=== PATIENT | female | born 1985 | race Caucasian/White ===

== ENCOUNTER 2021-09-26 08:37 | Outpatient (REF) | payer BC, SELFPAY ==
[2021-09-26 09:15] LABS: COVID-19 Test Negative (Negative); IDNOW Serial# 9DD0AD1C
== END 2021-09-26 08:38 | disposition home or self-care (01) ==
LOC: HO.LAB 08:37
PROVIDERS: Visit Provider Internal Medicine
DX: Z20.822 Contact with and (suspected) exposure to COVID-19 (principal)
CPT/HCPCS: 36415; 87635

== ENCOUNTER 2022-12-18 09:14 | Outpatient (REF) | payer OTHER, BC, SELFPAY ==
[2022-12-18 09:32] LABS: IDNOW Serial# 6674DD1D; Strep A Nucleic Acid Positive (Negative)
[2022-12-19 14:54] LABS: Binax Now Covid-19 Ag Negative (Negative)
[2022-12-19 14:55] LABS: Binax Internal Control QC Valid
== END 2022-12-18 09:15 | disposition home or self-care (01) ==
LOC: HO.LAB 09:14
PROVIDERS: Physician Assistant Medical; Absent Provider Physician Assistant; Visit Provider Physician Assistant
DX: Z20.822 Contact with and (suspected) exposure to COVID-19 (principal); J02.9 Acute pharyngitis, unspecified
CPT/HCPCS: 36415; 87651; 87811; C9803

== ENCOUNTER 2023-05-02 08:31 | Emergency (ER) | payer OTHER, BC, SELFPAY ==
--- NOTE | ~2023-05-02 | CT_ITS ---
EXAMINATION: CTA OF THE HEAD AND NECK CLINICAL INFORMATION: Severe neck pain. Rule out dissection. COMPARISON: None available. TECHNIQUE: Test bolus sequences followed by intravenous administration 70 mL of Omnipaque 350. Helical imaging was performed in the axial plane from the mediastinum to the skull vertex. Delayed postcontrast imaging of the head was also performed. The data was processed at the chief cardiopulmonary technologist's workstation for generation of MIP sequences. Three-dimensional volume rendered reformatted images were also generated at an offline 3-D workstation. Stenoses are assessed in accordance with NASCET criteria unless otherwise indicated. This CT examination was performed using dose optimization techniques as appropriate, variously including the following: *Automated exposure control *Adjustment of mA and/or kV according to patient size (this includes techniques or standardized protocols for targeted exams where dose is matched to indication/reason for exam; i.e. extremities or head) *Use of iterative reconstruction technique DLP: 2140 mGy-cm. FINDINGS: CT head: There is no evidence of acute intracranial hemorrhage or territorial infarction. There is no loss of [place] to white matter differentiation. No abnormal mass effect or midline shift is seen. No extra-axial fluid collections are identified. There is no abnormal enhancement. The ventricles are normal in size. There is no abnormal attenuation within the brain parenchyma. The osseous structures and soft tissues are normal. The mastoid air cells and visualized portions of the paranasal sinuses are well aerated. CTA neck: The imaged aortic arch and origins of the great vessels are normal. The common carotid arteries are widely patent. The carotid bifurcations are normal. The cervical internal carotid arteries are normal. The vertebral arteries opacify normally and are of normal caliber. There is hyperemia with increased mucosal enhancement affecting the adenoid soft tissues and the right torus tubarius, which may be infectious or inflammatory in etiology. There are some prominent and increased number of cervical lymph nodes measuring up to 1.2 cm in long axis dimension in the axial plane, which is presumably reactive. A 0.4 cm low-density nodule in the right thyroid lobe visible, for which no further imaging follow-up is indicated. The imaged portions of the lungs are clear. CTA head: The intradural vertebral arteries and basilar artery are normal. The posterior cerebral arteries are widely patent. The internal carotid arteries are of normal caliber. The NAYLA and MCA vascular complexes bilaterally are normal. The venous sinuses opacify normally. CT/CT angio head neck IMPRESSION: No acute intracranial process. Normal CT angiogram of the head and neck. No vascular dissection identified. Mucosal hyperemia in the nasopharyngeal soft tissues and right torus tubarius which is suspicious for acute adenitis; correlate with findings on direct visualization. Reactive cervical adenopathy as well.
[2023-05-02 08:43] VITALS: BP 130/85; PULSE 87; RESP 18; TEMP 36.9; O2SAT 98; BMI 26.2
[2023-05-02 09:25] LABS: MANUAL DIFF FLAG NO
--- NOTE | 2023-05-02 09:26 | PC.NURSE ---
Pt able to ambulate into ED, reporting 8/10 neck pain, that radiates down her spine, and up into the base of her skull, LEE present, pt reports taking APAP prior to coming in. Denies Fever/sob/n/v/d. Pt children have been sick last two weeks. Iv placed, and labs obtained
[2023-05-02 09:29] LABS: Basophils Percent Auto 0.6 % (0-2); Eosinophils Absolute Auto 0.1 X10*3/uL (0.0-0.4); Eosinophils Percent Auto 0.9 % (0-4); Hematocrit 39.2 % (37.0-47.0); Hemoglobin 13.6 g/dl (12.0-16.0); Imm Gran Abs Auto 0.01 X10*3/uL (0.00-0.03); Imm Gran Pct Auto 0.2 % (0.0-0.4); Lymphocytes Absolute Auto 1.1 X10*3/uL (1.2-4.9); Lymphocytes Percent Auto 16.8 % (20-40); Mean Corpuscular HGB Conc 34.7 g/dl (31.0-35.0); Mean Corpuscular Hemoglobin 31.3 pg (27.0-33.0); Mean Corpuscular Volume 90.3 fL (80.0-98.0); Monocytes Absolute Auto 0.8 X10*3/uL (0.1-1.2); Monocytes Percent Auto 11.9 % (2-11); Neutrophils Absolute Auto 4.5 x10*3/uL (2.0-8.3); Neutrophils Percent Auto 69.6 % (45-73); Platelet Count 185 X10*3/uL (160-400); Red Blood Count 4.34 X10*6/uL (4.20-5.50); Red Cell Distribution Width 11.9 % (11.0-16.0); White Blood Count 6.5 X10*3/uL (4.8-10.8)
--- NOTE | 2023-05-02 09:42 | ED.NECK ---
HPI - Neck Pain/Injury General Chief Complaint: Neck Pain/Injury Stated Complaint: Neck pain Time Seen by Provider: 05/02/23 09:18 Source: patient Mode of arrival: ambulatory Limitations: no limitations History of Present Illness HPI Narrative: 37 yo female no sig PMH here with c/o abrupt onset atraumatic bilateral neck pain radiating up and down back to head without known trauma or neck manipulation recently, no fevers / rash / tick bite. No numbness/tingling. Has not happened before. Feels like it hard to swallow but no sore throat. She does not have a headache but feels the pain goes up from neck to head. MD complaint: neck pain Onset (ago): hour(s) (couple of hours woke up with it) Place: home Radiation: right lateral and left lateral Severity: severe Quality: spasming and throbbing Duration: constant Relieving factors: immobilization Exacerbating factors: movement of neck and swallowing Associated symptoms: headache and other (back pain) Treatments prior to arrival: none Related Data Previous Rx's Medication Instructions Recorded amoxicillin 875 mg-potassium 1 tab PO BID #14 tabs 05/02/23 clavulanate 125 mg tablet cyclobenzaprine 10 mg tablet 10 mg PO TID PRN muscle spasm #20 05/02/23 tabs Allergies Allergy/AdvReac Type Severity Reaction Status Date / Time No Known Allergies Allergy Verified 05/02/23 08:43 Review of Systems Review of Systems: Constitutional : No Weight loss, No Fever, No Chills, ENT/Mouth : No Hearing loss, No Ear Pain, No Nasal Congestion, No Sinus Pain, No Hoarseness, No sore throat, No Rhinorrhea, pos Swallowing Difficulty Cardiovascular : No Chest Pain, No SOB Respiratory : No Cough, No Dyspnea Gastrointestinal : No Nausea, No Vomiting, No Diarrhea, No abdominal Pain, No Hematochezia, No Melena Genitourinary : No Dysuria, No Urinary Frequency, No Hematuria, No Urinary Incontinence, Musculoskeletal : positive neck pain Skin : No Skin Lesions, No rash Neuro : No Weakness, No Numbness, No Paresthesias, no loss of bowel or bladder incontinence, no saddle anesthesia PMFSH Past Medical History Attestation statement: The following information was validated with the patient. Medical History No pertinent past medical history Social History Social History Patient Tobacco Use Status: Never used Tobacco Smoked in Last 30 Days: No Advance Directives: No Physical Exam Vital Signs: Vital Signs: Last Vital Signs Temp 98.4 F 05/02/23 08:43 Pulse 87 05/02/23 08:43 Resp 18 05/02/23 08:43 BP 130/85 05/02/23 08:43 Pulse Ox 98 05/02/23 08:43 O2 Del Method Room Air 05/02/23 08:43 BMI result Body Mass Index 26.2 Appearance: Alert. Oriented X3. No acute distress. Eyes: Pupils equal, round and reactive to light. ENT: Pharynx normal. Neck: Normal inspection. Neck supple. CVS: Normal heart rate and rhythm. Pulses normal. Respiratory: No respiratory distress. Breath sounds normal. Abdomen: Soft and non-tender. Skin: Skin warm and dry. Normal skin color. Normal skin turgor. Extremities: No lower extremity edema. No calf ttp Neuro: Oriented X 3. No motor deficit. No sensory deficit. Course Course Course Narrative: feels much better has no diff swallowing stable for DC full ROM of neck I see no issues on R or L TM, no oral findings - no airway issues given read will start on augmentin Medications Administered Discontinued Medications Generic Name Dose Route Start Last Admin Trade Name Freq PRN Reason Stop Dose Admin Diazepam 2.5 mg 05/02/23 09:26 05/02/23 10:01 Diazepam 10 Mg/2 Ml Cartridge IVPUSH 05/02/23 09:27 2.5 mg STAT STA Administration Lactated Ringer's 1,000 mls @ 999 mls/hr 05/02/23 09:30 05/02/23 11:55 Lr IV 05/02/23 10:30 Infused .Q1H1M DEEP Infusion Iohexol 70 ml 05/02/23 11:39 05/02/23 11:40 Iohexol 350 Mg/Ml 100 Ml Infus..Btl IV 05/02/23 11:40 70 ml ONCE ONE Administration Medical Decision Making Medical Decision Making MDM Narrative: 37 yo female with no sig PMH here with c/o reproduceable neck pain that is not associated with trauma or chiropractic manipulation - she is NV intact. I can reproduce all of the pain with movement and palpation on the neck and spine. She denies fevers or tick bites. At thist lia basic labs and given degree of pain particularly with swallowing I am going to obtain CTA and given IV valium for spasm - CTA ordered for unusual swelling and dissection Differential Diagnosis Differential Diagnoses: The differential diagnosis associated with the presentation includes spasm, lyte derangement, dissection, swelling Lab Data MDM Lab Attestation statement: I reviewed the patient's lab results. 05/02/23 09:18 05/02/23 09:18 Labs: Lab Results 05/02/23 05/02/23 05/02/23 Range/Units 09:18 09:18 09:18 WBC 6.5 (4.8-10.8) X10*3/uL RBC 4.34 (4.20-5.50) X10*6/uL Hgb 13.6 (12.0-16.0) g/dl Hct 39.2 (37.0-47.0) % MCV 90.3 (80.0-98.0) fL MCH 31.3 (27.0-33.0) pg MCHC 34.7 (31.0-35.0) g/dl RDW 11.9 (11.0-16.0) % Plt Count 185 (160-400) X10*3/uL MPV 10.0 (9.4-12.3) fL Immature Gran % (Auto) 0.2 (0.0-0.4) % Neut % (Auto) 69.6 (45-73) % Lymph % (Auto) 16.8 L (20-40) % [place] % (Auto) 11.9 H (2-11) % Eos % (Auto) 0.9 (0-4) % Baso % (Auto) 0.6 (0-2) % Lymph # (Auto) 1.1 L (1.2-4.9) X10*3/uL [place] # (Auto) 0.8 (0.1-1.2) X10*3/uL Eos # (Auto) 0.1 (0.0-0.4) X10*3/uL Baso # (Auto) 0.0 (0.0-0.2) X10*3/uL Abs Immat Gran (auto) 0.01 (0.00-0.03) X10*3/uL Absolute Neuts (auto) 4.5 (2.0-8.3) x10*3/uL Absolute Nucleated RBC 0.000 (0.0-0.012) X10*3/uL Nucleated RBC % (auto) 0.0 (0.0-0.2) /100WBC ESR 2 (0-20) MM/HR Sodium 138 (135-145) mmol/L Potassium 4.4 (3.3-5.1) mmol/L Chloride 102 (96-108) mmol/L Carbon Dioxide 25 (22-29) mmol/L Anion Gap 15 (12-20) BUN 11 (9-16) mg/dL Creatinine 0.83 (0.5-1.4) mg/dL Estim Creat Clear Calc 85.3 Estimated GFR > 60 Random Glucose 112 (60-115) mg/dL Calcium 9.4 (8.4-10.2) mg/dL Magnesium (1.6-2.6) mg/dL Beta HCG, Quant mIU/mL Influenza Type A (PCR) (Negative) Influenza Type B (PCR) (Negative) RSV RNA Qual (PCR) (Negative) SARS-CoV-2 RNA (RT-PCR) (Negative) S. pyogenes GrpA BRYCE (Negative) 05/02/23 05/02/23 05/02/23 Range/Units 10:00 10:01 10:58 WBC (4.8-10.8) X10*3/uL RBC (4.20-5.50) X10*6/uL Hgb (12.0-16.0) g/dl Hct (37.0-47.0) % MCV (80.0-98.0) fL MCH (27.0-33.0) pg MCHC (31.0-35.0) g/dl RDW (11.0-16.0) % Plt Count (160-400) X10*3/uL MPV (9.4-12.3) fL Immature Gran % (Auto) (0.0-0.4) % Neut % (Auto) (45-73) % Lymph % (Auto) (20-40) % [place] % (Auto) (2-11) % Eos % (Auto) (0-4) % Baso % (Auto) (0-2) % Lymph # (Auto) (1.2-4.9) X10*3/uL [place] # (Auto) (0.1-1.2) X10*3/uL Eos # (Auto) (0.0-0.4) X10*3/uL Baso # (Auto) (0.0-0.2) X10*3/uL Abs Immat Gran (auto) (0.00-0.03) X10*3/uL Absolute Neuts (auto) (2.0-8.3) x10*3/uL Absolute Nucleated RBC (0.0-0.012) X10*3/uL Nucleated RBC % (auto) (0.0-0.2) /100WBC ESR (0-20) MM/HR Sodium (135-145) mmol/L Potassium (3.3-5.1) mmol/L Chloride (96-108) mmol/L Carbon Dioxide (22-29) mmol/L Anion Gap (12-20) BUN (9-16) mg/dL Creatinine (0.5-1.4) mg/dL Estim Creat Clear Calc Estimated GFR Random Glucose (60-115) mg/dL Calcium (8.4-10.2) mg/dL Magnesium 2.0 (1.6-2.6) mg/dL Beta HCG, Quant < 2 mIU/mL Influenza Type A (PCR) (Negative) Influenza Type B (PCR) (Negative) RSV RNA Qual (PCR) (Negative) SARS-CoV-2 RNA (RT-PCR) (Negative) S. pyogenes GrpA BRYCE Negative (Negative) 05/02/23 Range/Units 10:58 WBC (4.8-10.8) X10*3/uL RBC (4.20-5.50) X10*6/uL Hgb (12.0-16.0) g/dl Hct (37.0-47.0) % MCV (80.0-98.0) fL MCH (27.0-33.0) pg MCHC (31.0-35.0) g/dl RDW (11.0-16.0) % Plt Count (160-400) X10*3/uL MPV (9.4-12.3) fL Immature Gran % (Auto) (0.0-0.4) % Neut % (Auto) (45-73) % Lymph % (Auto) (20-40) % [place] % (Auto) (2-11) % Eos % (Auto) (0-4) % Baso % (Auto) (0-2) % Lymph # (Auto) (1.2-4.9) X10*3/uL [place] # (Auto) (0.1-1.2) X10*3/uL Eos # (Auto) (0.0-0.4) X10*3/uL Baso # (Auto) (0.0-0.2) X10*3/uL Abs Immat Gran (auto) (0.00-0.03) X10*3/uL Absolute Neuts (auto) (2.0-8.3) x10*3/uL Absolute Nucleated RBC (0.0-0.012) X10*3/uL Nucleated RBC % (auto) (0.0-0.2) /100WBC ESR (0-20) MM/HR Sodium (135-145) mmol/L Potassium (3.3-5.1) mmol/L Chloride (96-108) mmol/L Carbon Dioxide (22-29) mmol/L Anion Gap (12-20) BUN (9-16) mg/dL Creatinine (0.5-1.4) mg/dL Estim Creat Clear Calc Estimated GFR Random Glucose (60-115) mg/dL Calcium (8.4-10.2) mg/dL Magnesium (1.6-2.6) mg/dL Beta HCG, Quant mIU/mL Influenza Type A (PCR) NEGATIVE (Negative) Influenza Type B (PCR) NEGATIVE (Negative) RSV RNA Qual (PCR) NEGATIVE (Negative) SARS-CoV-2 RNA (RT-PCR) NEGATIVE (Negative) S. pyogenes GrpA BRYCE (Negative) Independent Interpretation I performed an independent interpretation of an: CT Scan Interpretation: no dissection, adenitis Radiology Impression Discussion of test interpretation with radiology: I have reviewed the radiologist's reading. Prescription Management I considered prescription management with: Antibiotic and Other augmentin and flexeril Discharge Plan Discharge Clinical Impression: Muscle spasms of neck, Acute adenitis Patient Disposition: Home, Self-Care Instructions: Muscle Spasm (ED), Adenitis (ED) Additional Instructions: take a probiotic while on augmentin. if more than 6 stools a day talk to your doctor. stay hydrated. return for worsening pain, fevers, difficulty breathing or swallowing, confusion, severe headache or any other concerns. touch base with your doctor in 1 week given inflammation and infection to make sure this is resolved incidental findings per radiologist not the cause of today's symptoms ?A 0.4cm low-density nodule in the right thyroid lobe visible, for which no further imaging follow-up is indicated Prescriptions: New amoxicillin-pot clavulanate 875-125 mg tablet 1 tab PO BID Qty: 14 0RF cyclobenzaprine 10 mg tablet 10 mg PO TID PRN (Reason: muscle spasm) Qty: 20 0RF Stand Alone Forms: Work/School Release
[2023-05-02 09:49] LABS: Anion Gap 15 (12-20); Blood Urea Nitrogen 11 mg/dL (9-16); Calcium 9.4 mg/dL (8.4-10.2); Carbon Dioxide 25 mmol/L (22-29); Chloride 102 mmol/L (96-108); Creatinine Clr Calc Pharmacy 85.3; Estimated Glomerular Filt Rate > 60; Glucose Random 112 mg/dL (60-115); Potassium 4.4 mmol/L (3.3-5.1); Sodium 138 mmol/L (135-145)
[2023-05-02] MEDS: diazePAM 10 MG/2 ML CARTRIDGE 2.5 MG IVPUSH (10:01)
[2023-05-02] MEDS: Lactated Ringers 1,000 ML 999 ML IV (10:01)
[2023-05-02 10:08] LABS: Erythrocyte Sedimentation Rate 2 MM/HR (0-20)
[2023-05-02 10:48] LABS: HCG Quantitative < 2 mIU/mL
[2023-05-02 11:24] LABS: IDNOW Serial# 08D9AD1C; Strep A Nucleic Acid Negative (Negative)
[2023-05-02] MEDS: iohexoL 350 MG/ML 100 ML INFUS..BTL 70 ML IV (11:40)
[2023-05-02 11:49] LABS: Influenza A PCR NEGATIVE (Negative); Influenza B PCR NEGATIVE (Negative); Resp Syncy Virus RNA Qual PCR NEGATIVE (Negative); SARS COV2 PCR INHOUSE NEGATIVE (Negative)
[2023-05-02 12:34] VITALS: BP 137/67; PULSE 65; RESP 18; TEMP 36.8; O2SAT 100
== END 2023-05-02 12:44 | disposition home or self-care (01) ==
PROVIDERS: Emergency Provider Emergency Medicine
DX: M62.838 Other muscle spasm (principal); L04.9 Acute lymphadenitis, unspecified; Z20.822 Contact with and (suspected) exposure to COVID-19; Z20.828 Contact with and (suspected) exposure to other viral communicable diseases
CPT/HCPCS: 0241U; 36415; 70496; 70498; 80048; 83735; 84702; 85025; 85652; 87651; 96361; 96374; 99284; 99285; J3360; Q9967